=== PATIENT | female | born 1940 | race Caucasian/White ===

== ENCOUNTER 2016-08-19 07:42 | Emergency (ER) | payer MEDICARE, OTHER ==
[2016-08-19 07:42] VITALS: BMI 25.4
[2016-08-19 07:55] VITALS: TEMP 97.8; O2SAT 98
[2016-08-19] MEDS ORDERED: Sodium Chloride 0.9% 1,000 ML IV ONE (08:00)
[2016-08-19] MEDS ORDERED: Albuterol-Ipratrop 3 mg / 0.5 (3 ml) UD IH STA (08:00)
--- NOTE | 2016-08-19 08:08 | C.PDOC ---
History Of Present Illness Patient is a 76 y/o female, whose PMHx includes asthma, that presents to the ED for evaluation of dry cough for the last 3-4 months. Patient states that she has difficulty breathing when she has to cough. Patient feels that there is something stuck in her throat. Otherwise, denies any sputum, chest pain, fever, or any other associated symptoms at this time. Time Seen by Provider: 08/19/16 07:55 Chief Complaint (Nursing): Cough, Cold, Congestion History Per: Patient History/Exam Limitations: no limitations Onset/Duration Of Symptoms: Days (5) Current Symptoms Are (Timing): Still Present Sick Contacts (Context): None Associated Symptoms: Cough. denies: Fever, Chills, Sputum, Neck Pain Ear Symptoms: Bilateral: None Recent travel outside of the [place]: No Additional History Per: Patient Past Medical History Reviewed: Historical Data, Nursing Documentation, Vital Signs Vital Signs: Last Vital Signs Temp 97.8 F 08/19/16 07:45 Pulse 64 08/19/16 09:34 Resp 20 08/19/16 09:34 BP 110/51 L 08/19/16 09:34 Pulse Ox 98 08/19/16 11:05 - Medical History PMH: Asthma, HTN, Hypercholesterolemia Family History: States: Unknown Family Hx - Social History Hx Tobacco Use: No Hx Alcohol Use: No Hx Substance Use: No - Immunization History Hx Tetanus Toxoid Vaccination: No Hx Influenza Vaccination: Yes Hx Pneumococcal Vaccination: No Review Of Systems Except As Marked, All Systems Reviewed And Found Negative. Constitutional: Negative for: Fever, Chills ENT: Negative for: Ear Pain, Nose Congestion Cardiovascular: Negative for: Chest Pain, Palpitations Respiratory: Positive for: Cough, Shortness of Breath. Negative for: Hemoptysis , Sputum, Wheezing Musculoskeletal: Negative for: Neck Pain Skin: Negative for: Rash Neurological: Negative for: Headache, Dizziness Physical Exam - Physical Exam Appears: Non-toxic, No Acute Distress Skin: Normal Color, Warm, Dry, No Rash Head: Atraumatic, Normacephalic Eye(s): bilateral: Normal Inspection, EOMI Ear(s): Bilateral: Normal Nose: Normal Oral Mucosa: Moist Teeth: Dentures Throat: Normal, No Erythema, No Exudate, No Drooling Neck: Normal ROM, Supple Chest: Symmetrical, No Tenderness Cardiovascular: Rhythm Regular, No Murmur Respiratory: Normal Breath Sounds, No Accessory Muscle Use, No Rales, No Rhonchi , No Wheezing Extremity: Bilateral: Atraumatic, No Pedal Edema, Normal Color And Temperature, Normal ROM Neurological/Psych: Oriented x3, Normal Speech Gait: Steady ED Course And Treatment - Laboratory Results Result Diagrams: 08/19/16 08:30 08/19/16 08:30 Lab Interpretation: No Acute Changes O2 Sat by Pulse Oximetry: 98 (on RA) Pulse Ox Interpretation: Normal - Radiology CXR: Interpreted by Me, Viewed By Me - Other Rad CXR X-Ray: Viewed By Me, Read By Radiologist Interpretation: FINDINGS: LUNGS: The lungs are clear. No focal consolidation. PLEURA: No significant pleural effusion identified. No pneumothorax apparent. CARDIOVASCULAR: The heart is normal in size. Atherosclerotic aortic arch calcifications are present. OSSEOUS STRUCTURES: No significant abnormalities. VISUALIZED UPPER ABDOMEN: Normal. OTHER FINDINGS: None. IMPRESSION: No active pulmonary disease. Progress Note: . Medical Decision Making Medical Decision Making: Labs, CXR ordered and reviewed. CXR shows normal cardiac silhouette, lungs show no signs of pneumonia, no significant pleural effusion, no pneumothorax. Labs unremarkable no leukocytosis or other signs of infectious pathology. Patient was treated with Albuterol, Solu-medrol, and IV fluids in the ER. On re- exam, patient reports improvement of symptoms. She has no fever and is speaking clear sentences with no SOB. Lungs clear bilaterally with good air exchange.Explain symptoms likely related to asthma/allergies. Patient feels comfortable going home and will be discharged. Patient given follow up instructions. Instructed to return to ER if symptoms worsen or new symptoms arise. Disposition Counseled Patient/Family Regarding: Diagnosis, Need For Followup, Rx Given - Disposition Referrals: Espinoza Smith MD [Staff Provider] - Disposition: HOME/ ROUTINE Disposition Time: 09:18 Condition: STABLE Additional Instructions: May use cool mist humidifier or vaporizer in room. Try taking over the counter antihistamine (Claritin, Farnaz, Zyrtec), Decongestant or Cough medicine as needed every 6-8 hours. Continue your usual medications. Follow up with your primary medical doctor or clinic in 2-5 days for further evaluation. Prescriptions: Albuterol HFA [Ventolin HFA 90 mcg/actuation (8 g)] 1 puff IH Q4 #1 puff Loratadine [Claritin] 10 mg PO DAILY #30 tab Promethazine DM [Phenergan DM Syrup] 5 ml PO Q8 PRN #3 oz PRN Reason: Cough Instructions: Chronic Cough (DC) - POA Present On Arrival: None - Clinical Impression Clinical Impression: Bronchospasm, Upper respiratory infection - PA / NEWSPAPER LIBRARY MANAGER / Resident Statement MD/DO has reviewed & agrees with the documentation as recorded. - Scribe Statement The provider has reviewed the documentation as recorded by the Destinyibawais Addison All medical record entries made by the Jenni were at my direction and personally dictated by me. I have reviewed the chart and agree that the record accurately reflects my personal performance of the history, physical exam, medical decision making, and the department course for this patient. I have also personally directed, reviewed, and agree with the discharge instructions and disposition.
[2016-08-19] MEDS ORDERED: Albuterol-Ipratrop 3 mg / 0.5 (3 ml) UD ONE (08:20)
[2016-08-19] MEDS ORDERED: MethylPREDNISolone 40 mg Vial ONE (08:20)
[2016-08-19] MEDS ORDERED: Sodium Chloride 0.9% 1,000 ML ONE (08:20)
[2016-08-19 08:42] LABS: BASO % 0.4 % (0.0-2.0); EOS # 0.1 K/uL (0.0-0.7); EOS % 2.3 % (0.0-4.0); HEMATOCRIT 40.3 % (34.0-47.0); LYMPH # 2.9 K/uL (1.0-4.3); LYMPH % 53.4 % (20.0-40.0); MEAN CELL VOLUME 89.6 fL (81.0-99.0); MEAN CORPUSCULAR HGB CONC 33.5 g/dL (33.0-37.0); MEAN PLATELET VOLUME 9.3 fL (7.2-11.7); MONO # 0.5 K/uL (0.0-0.8); MONO % 10.2 % (0.0-10.0); NRBC % 0.1 % (0.0-2.0); RED CELL DISTRIBUTION WIDTH 12.9 % (11.5-14.5); WHITE BLOOD COUNT 5.4 K/uL (4.8-10.8)
[2016-08-19 08:49] LABS: CHLORIDE 97 mmol/L (98-107); POTASSIUM 4.2 mmol/L (3.6-5.2); SODIUM 136 mmol/L (132-148)
[2016-08-19 08:51] LABS: GFR AFRICAN-AMERICAN > 60
[2016-08-19 08:52] LABS: ALB/GLOB RATIO 1.6 (1.0-2.1); ALKALINE PHOSPHATASE 75 U/L (38-126); ALT/SGPT 41 U/L (9-52); AST/SGOT 34 U/L (14-36); BILIRUBIN,TOTAL 0.8 mg/dL (0.2-1.3); BLOOD UREA NITROGEN 20 mg/dL (7-17); CARBON DIOXIDE 28 mmol/L (22-30); GLUCOSE,RANDOM 90 mg/dL (65-105); TOTAL PROTEIN 7.2 g/dL (6.3-8.3)
[2016-08-19 09:35] VITALS: BP 110/51; PULSE 64; RESP 20
--- NOTE | 2016-08-19 10:36 | RAD ---
HISTORY: Shortness of breath COMPARISON: 10/26/2015 TECHNIQUE: Chest PA and lateral FINDINGS: LUNGS: The lungs are clear. No focal consolidation. PLEURA: No significant pleural effusion identified. No pneumothorax apparent. CARDIOVASCULAR: The heart is normal in size. Atherosclerotic aortic arch calcifications are present. OSSEOUS STRUCTURES: No significant abnormalities. VISUALIZED UPPER ABDOMEN: Normal. OTHER FINDINGS: None. IMPRESSION: No active pulmonary disease.
== END 2016-08-19 09:47 | disposition home or self-care (01) ==
LOC: C.ER 07:42
DX: J98.01 Acute bronchospasm (principal); J06.9 Acute upper respiratory infection, unspecified
CPT/HCPCS: 71020; 80053; 83880; 85025; 96361; 96374; 99284; J2930; J7040